=== PATIENT | male | born 1950 | race Caucasian/White ===

== ENCOUNTER 2024-11-21 15:33 | Emergency (ER) | payer MEDICARE, OTHER, SELFPAY ==
[2024-11-21 15:37] VITALS: BP 136/86
[2024-11-21 16:21] LABS: Hematocrit 38.3 % (39.0-52.0); Hemoglobin 13.5 g/dL (13.0-18.0); Mean Corp Hgb Conc. 35.2 g/dL (33.0-37.0); Mean Corpuscular Volume 94.1 fL (80.0-94.0); Nucleated Red Blood Cells % 0 % (-); Platelet Count 122 10^3/uL (130-400); Red Cell Dist. Width 16.4 % (11.5-14.5)
[2024-11-21 16:53] LABS: ALT (SGPT) 22 U/L (0-50); AST (SGOT) 44 U/L (17-59); Albumin 4.0 g/dl (3.5-5.0); Alkaline Phosphatase 144 U/L (38-126); Blood Urea Nitrogen 8 mg/dl (9-20); Calcium 9.0 mg/dl (8.4-10.2); Carbon Dioxide 22 mmol/L (22-30); Chloride 109 mmol/L (98-107); Glucose 102 mg/dl (70-99); Potassium 3.9 mmol/L (3.5-5.1); Sodium 142 mmol/L (135-145); Total Protein 8.4 g/dl (6.3-8.2); eGFR > 60.00
--- NOTE | 2024-11-21 17:54 | ED.GENMED ---
History of Present Illness
<Jenae Barrera PA-C - Last Filed: 11/22/24 11:10>
General
Chief Complaint: Fall
Source: patient
Exam Limitations: none
Time Seen by Provider: 11/21/24 16:27
Nursing documentation reviewed up to this point in time: agreed with
History of Present Illness
History of Present Illness:
Patient is a 74-year-old male with history atrial fibrillation on Eliquis, COPD who presents to the emergency department for evaluation of generalized weakness. Patient states earlier today he was getting all of his hunting gear into the car when
he became severely weak and unable to stand. He was able to lay himself across his backseat of his car so he did not fall or strike his head. However�he was unable to get up on his own prompting a call to 911.
At this time�patient feels extremely fatigued however denies any chest pain, shortness of breath, dizziness, headache. He has not had any recent fever, chills, or viral symptoms.
Patient does report having a few vodka drinks on his drive to hunting today. He drinks approximately 6 drinks per day. He was sober for the past 5 years until recently. He does not have any current interest in rehab placement today.
He reports similar episodes occurring approximately 6 times over the past few months. He has been admitted at a hospital in [place] for similar symptoms without any clear diagnosis.
Patient is anticoagulated on Eliquis however reports poor compliance.
Review of Systems
<Jenae Barrera PA-C - Last Filed: 11/22/24 11:10>
Review of Systems
Allergies reviewed?: Yes
All Other Systems: ROS reviewed and negative except as documented in HPI and ROS
Phy Exam
<Jenae Barrera PA-C - Last Filed: 11/22/24 11:10>
Physical Exam
Physical Exam:
Vitals: Mildly hypertensive, otherwise vital signs stable. Afebrile
General: Patient is resting comfortably on my initial evaluation
Skin: Warm and dry, no rashes or lesions
Head: Normocephalic, atraumatic
Eyes: Sclera nonicteric. EOMs intact. No nystagmus.
Throat: Protecting airway
Neck: Normal ROM, no cervical spine tenderness, no meningismus
Cardiac: Regular rate, irregularly irregular rhythm. No murmurs
Pulm: Normal respiratory effort. Somewhat decreased breath sounds bilaterally
Abdomen: Mildly distended. Abdomen soft nontender.
Extremities: No evidence of cyanosis or edema. Strength 5/5 in bilateral upper and lower extremities without any evidence of traumatic injuries
Neuro: AAOx3. CN II-XII grossly intact. No focal neurologic deficits.
Psychiatric: Normal affect.
Course
<Jenae Barrera PA-C - Last Filed: 11/22/24 11:10>
Orders/Labs/Results
Orders:
Orders
11/21/24 15:39
EKG [Electrocardiogram (*1)] Urgent
Reason for Study: Fatigue / Weakness
11/21/24 15:40
EKG- Treatment ONCE
11/21/24 16:07
Alcohol Urgent
Complete Blood Count/With Diff Urgent
Comprehensive Metabolic Panel Urgent
Magnesium Urgent
Comment: ADD ON
Phosphorus Urgent
Comment: ADD ON
11/21/24 17:10
Cardiac Monitoring- Treatment ONCE
CR Chest - 2 Views Urgent
Comment:
Reason For Exam: SOB
11/21/24 17:11
Orthostatic VS- Treatment ONCE
11/21/24 17:15
Add On- LAB Urgent
Tests Added?: alcohol
11/21/24 17:48
Add On- LAB Urgent
Tests Added?: magnesium, phosphorus, thiamine
11/21/24 17:52
NT-proBNP Urgent
Troponin I Urgent
Urinalysis Reflex To Culture Urgent
Date Specimen was Collected: 11/21/24
Time Specimen was Collected: 17:43
Urine Microscopic Reflex Cult Urgent
11/21/24 18:06
0.9% Sodium Chloride 1000 ml [Nss] 1,000 ml IV BOLUS
11/21/24 19:32
Troponin I Urgent
Vitamin B1, Whole Blood [S] Urgent
Comment: FOR SEND OUT
11/21/24 19:50
ECG [Electrocardiogram (*1)] Urgent
Reason for Study: Vertigo / Dizzy
11/21/24 19:51
EKG- Treatment ONCE
Abnormal Lab Results
11/21/24 11/21/24
16:07 17:52
WBC 4.7 L 10^3/uL
(4.8-10.8)
RBC 4.07 L 10^6/uL
(4.70-6.10)
Hct 38.3 L %
(39.0-52.0)
MCV 94.1 H fL
(80.0-94.0)
MCH 33.2 H pg
(27.0-31.0)
RDW 16.4 H %
(11.5-14.5)
Plt Count 122 L 10^3/uL
(130-400)
Eosinophils % 11.1 H %
(0-6)
Chloride 109 H mmol/L
(98-107)
BUN 8 L mg/dl
(9-20)
Glucose 102 H mg/dl
(70-99)
Total Bilirubin 1.8 H mg/dl
(0.2-1.3)
Alkaline Phosphatase 144 H U/L
(38-126)
Total Protein 8.4 H g/dl
(6.3-8.2)
Ur Occult Blood Reflex 1+ A
(Negative)
Urine Bacteria (Reflex) Few A
(Negative)
11/21/24 16:07
11/21/24 16:07
Vital Signs
Initial and Last Documented VS:
Initial Vital Signs
Temp Pulse Resp BP Pulse Ox
98.5 F 58 18 136/86 96
11/21/24 15:37 11/21/24 15:37 11/21/24 15:37 11/21/24 15:37 11/21/24 15:37
Last Documented Vital Signs
Temp Pulse Resp BP Pulse Ox
98.5 F 79 18 138/72 99
11/21/24 15:37 11/21/24 20:44 11/21/24 20:44 11/21/24 20:44 11/21/24 20:44
<Williams Palmer MD - Last Filed: 11/22/24 14:10>
Orders/Labs/Results
Orders:
Orders
11/21/24 15:39
EKG [Electrocardiogram (*1)] Urgent
Reason for Study: Fatigue / Weakness
11/21/24 15:40
EKG- Treatment ONCE
11/21/24 16:07
Alcohol Urgent
Complete Blood Count/With Diff Urgent
Comprehensive Metabolic Panel Urgent
Magnesium Urgent
Comment: ADD ON
Phosphorus Urgent
Comment: ADD ON
11/21/24 17:10
Cardiac Monitoring- Treatment ONCE
CR Chest - 2 Views Urgent
Comment:
Reason For Exam: SOB
11/21/24 17:11
Orthostatic VS- Treatment ONCE
11/21/24 17:15
Add On- LAB Urgent
Tests Added?: alcohol
11/21/24 17:48
Add On- LAB Urgent
Tests Added?: magnesium, phosphorus, thiamine
11/21/24 17:52
NT-proBNP Urgent
Troponin I Urgent
Urinalysis Reflex To Culture Urgent
Date Specimen was Collected: 11/21/24
Time Specimen was Collected: 17:43
Urine Microscopic Reflex Cult Urgent
11/21/24 18:06
0.9% Sodium Chloride 1000 ml [Nss] 1,000 ml IV BOLUS
11/21/24 19:32
Troponin I Urgent
Vitamin B1, Whole Blood [S] Urgent
Comment: FOR SEND OUT
11/21/24 19:50
ECG [Electrocardiogram (*1)] Urgent
Reason for Study: Vertigo / Dizzy
11/21/24 19:51
EKG- Treatment ONCE
Abnormal Lab Results
11/21/24 11/21/24
16:07 17:52
WBC 4.7 L 10^3/uL
(4.8-10.8)
RBC 4.07 L 10^6/uL
(4.70-6.10)
Hct 38.3 L %
(39.0-52.0)
MCV 94.1 H fL
(80.0-94.0)
MCH 33.2 H pg
(27.0-31.0)
RDW 16.4 H %
(11.5-14.5)
Plt Count 122 L 10^3/uL
(130-400)
Eosinophils % 11.1 H %
(0-6)
Chloride 109 H mmol/L
(98-107)
BUN 8 L mg/dl
(9-20)
Glucose 102 H mg/dl
(70-99)
Total Bilirubin 1.8 H mg/dl
(0.2-1.3)
Alkaline Phosphatase 144 H U/L
(38-126)
Total Protein 8.4 H g/dl
(6.3-8.2)
Ur Occult Blood Reflex 1+ A
(Negative)
Urine Bacteria (Reflex) Few A
(Negative)
11/21/24 16:07
11/21/24 16:07
Vital Signs
Initial and Last Documented VS:
Initial Vital Signs
Temp Pulse Resp BP Pulse Ox
98.5 F 58 18 136/86 96
11/21/24 15:37 11/21/24 15:37 11/21/24 15:37 11/21/24 15:37 11/21/24 15:37
Last Documented Vital Signs
Temp Pulse Resp BP Pulse Ox
98.5 F 79 18 138/72 99
11/21/24 15:37 11/21/24 20:44 11/21/24 20:44 11/21/24 20:44 11/21/24 20:44
<Jenae Barrera PA-C - Last Filed: 11/22/24 11:10>
MDM/Problems Addressed
Differential Diagnosis Includes:
Not limited to: Acute dehydration, UTI, viral illness, alcohol intoxication, anemia, etc.
MDM/Problems Addressed:
74-year-old male presenting with generalized weakness. He has had multiple similar episodes over the past few months. Today�he denies any preceding chest pain, shortness of breath. He did not fall or sustain any injuries. He does report having a
few drinks prior to onset of weakness. Vitals as above. On exam�patient has no evidence of head or neck trauma. Cardio/pulmonary assessment unremarkable. He is neurologically intact without any focal deficits. Strength appears intact, as well.
Differential includes cardiac arrhythmia, dehydration, UTI, viral illness. Weakness may be secondary to deconditioning and alcohol use. He is not interested right now in any acute rehab placement.
ED plan: Labs, EKG, UA. Will obtain chest x-ray, cardiac enzymes given history of progressively worsening shortness of breath however asymptomatic now. Will check alcohol level.
Update: Labs reveal mild thrombocytopenia, otherwise no clinically significant abnormalities. Alcohol level 276. Will give IVF and reassess patients ambulatory status.
Case signed out to attending physician.
Chronic conditions affecting care:
Atrial fibrillation on Eliquis, alcohol use disorder
Acute Exacerbation and/or Progression of Chronic Illness:
N/A
<Jenae Barrera PA-C - Last Filed: 11/22/24 11:10>
*Radiology
Radiology exam reviewed: preliminary read by ED provider and radiology read reviewed
*Pulse Oximetry
SaO2: 96
Oxygen Mode of Delivery: Room air
Patient hypoxic: no
*EKG
Interpreted by ED Provider?: Yes
EKG Intrepretation Date: 11/21/24
Interpretation: abnormal
Comparison EKG: no changes
Heart Rate: 60
Rate: normal
Rhythm: a-fib
Poyen: normal axis
Interval: normal QT interval
QRS Pattern: low voltage
Ischemia: non-specific ST changes
*General Maintenance Engineer Interpretation
Rate: General Maintenance Engineer- N/A
*Critical Care Note
Total Time (30-74mins, 75-104mins- exclusive of procedures): Not Applicable
ED Attending Note
<Jenae Barrera PA-C - Last Filed: 11/22/24 11:10>
-
Portions of this chart may have been created with voice recognition software.� Occasional wrong word or��sound alike� substitutions may have occurred due to the inherent limitations of voice recognition software.
<Williams Palmer MD - Last Filed: 11/22/24 14:10>
ED Attending Note
Patient seen and examined by attending physician: Yes
ED Attending Note:
Patient with history of chronic alcoholism and atrial fibrillation on Eliquis, presents ED for evaluation after recurrent generalized weakness with sensation of 'passing out', while sitting in his car this afternoon. Denies loss of consciousness.
Denies headache. Denies dizziness. Denies loss of sensation or focal weakness. Denies chest pain or palpitations. Denies shortness of breath. Denies nausea or vomiting. Denies diarrhea. No recent change in medications or diet. However,
patient does admit to having had alcohol, i.e. vodka, today. Patient does understand that his recurrent symptoms are likely secondary to his chronic alcohol use. Patient does not wish to pursue any acute inpatient treatment. Patient states that
he has been admitted to the hospital on multiple occasions, with unremarkable workup.
Physical Exam
General: no apparent distress, not acutely ill. afebrile. overweight.
Head: nc/at. eomi
Neck: supple. no meningeal signs.
Heart: s1/s2 regular rate and rhythm
Lungs: no acute respiratory distress. clear bilaterally
Abdomen: normal bowel sounds. not tender.
Neuro: alert and oriented x 3. no focal neurological deficits. normal speech
Skin: no rash
Psychiatric: well kept. interactive and cooperative
Extremities: no edema. no calf tenderness.
Patient declined recommendation to receive CT head, as he states that he has had too many CT scans for similar complaint recently, which I believe is reasonable, as patient currently has no obvious neurological deficit with normal mentation.
After receiving IV fluids, patient reports significant improvement in symptoms. Patient is able to ambulate independently, with steady gait. Discussed differential diagnosis and treatment options with patient and his spouse at bedside. Despite
patient's current presenting symptoms, which may be acute on chronic, with patient's continual consumption of alcohol, patient aware that overnight stay in the hospital will not offer any long-term benefit especially as patient has been admitted at
different hospital for same complaint recently, with significant workup. Patient is currently not interested in [facility], and would like to follow-up with [email or web address], with whom he has had success in the past. In the meantime, spouse, who does
not live with the patient, states that she will make arrangements for him to get appropriate outpatient follow-up and watch him closely at home. As such, decision made to discharge patient home at this time, with return precautions provided.
Discharge Plan
Departure
Patient Disposition: Home (Routine Discharge)
Date of Disposition: 11/21/24
Time of Disposition: 20:43
Patient with high blood pressure during this ER visit?: Yes
Condition: Fair
Discharge Problem:
Alcoholism, Thrombocytopenia
Instructions: Managing increased bleeding risk, Alcohol use disorder - ED (DC)
Prescriptions:
No Action
ergocalciferol (vitamin D2) 400 UNIT tablet
125 mcg PO QPM
fluticasone propionate 1 SPRAY spray,suspension
1 spray intranasal QPM
Patient Comments:
takes 50
apixaban [Eliquis] 5 MG tablet
5 mg PO BID
multivitamin 1 EACH tablet
1 tab PO QPM
cetirizine 10 MG tablet
10 mg PO QPM
aspirin 81 MG tablet,delayed release (DR/EC)
81 mg PO QPM
potassium gluconate 600 MG tablet
99 mg PO QPM
diltiazem HCl 120 MG capsule,extended release 24hr
120 mg PO DAILY Qty: 90 3RF
Rx Instructions:
Please note decreased daily dose
Referrals:
Luan Navarro DO [Family Provider, Family Practice]
Activity Restrictions/Additional Instructions:
As discussed, please follow-up with your primary care physician for further evaluation and treatment, including repeat blood work over the next 2 weeks. In addition, strongly recommend following up with [facility], for treatment of your
chronic alcohol dependence.
Interventions
Interventions:
*Risk Screen - Suicide Last Done: 11/21/24 15:37
*General Assessment Last Done: 11/21/24 15:37
*Neglect/Abuse Screening Last Done: 11/21/24 15:37
*ED- Fall Risk Assessment Last Done: 11/21/24 15:37
*ED COVID-19 Vaccine History Last Done: 11/21/24 15:37
*Nursing Disposition Last Done: 11/21/24 20:46
ED-Musculoskeletal Assessment Last Done: 11/21/24 16:32
ED- Neurological Assessment Last Done: 11/21/24 16:32
ED-Skin Assessment Last Done: 11/21/24 16:32
Discharge Date and Time
Discharge Date/Time: 11/21/24 20:49
Print Language: OCCITAN
[2024-11-21 18:01] VITALS: BP 128/84; BP 130/80; BP 132/84; PULSE 74; PULSE 76
[2024-11-21 18:02] LABS: Magnesium 1.6 mg/dl (1.6-2.3)
[2024-11-21 18:11] LABS: Urine Character Clear (Clear)
[2024-11-21] MEDS: NSS 1000 IV (18:15)
[2024-11-21 18:16] LABS: Urine Squamous Cell 0-2 /LPF (Few)
[2024-11-21 18:18] LABS: Urine Red Blood Cell 0-2 /HPF (0-2); Urine White Cell 0-2 /HPF (0-5)
[2024-11-21 18:37] LABS: Troponin I 0.019 ng/ml
[2024-11-21 20:07] LABS: Troponin I 0.019 ng/ml
[2024-11-21 20:44] VITALS: BP 138/72
== END 2024-11-21 20:49 | disposition home or self-care (01) ==
LOC: EMR 15:33
PROVIDERS: Physician Assistant; Student in an Organized Health Care Education/Training Program; EMERGENCY PHYSICIAN Emergency Medicine; FAMILY PHYSICIAN Family Medicine
DX: F10.20 Alcohol dependence, uncomplicated (principal); Y90.8 Blood alcohol level of 240 mg/100 ml or more; D69.6 Thrombocytopenia, unspecified; I48.91 Unspecified atrial fibrillation; J44.9 Chronic obstructive pulmonary disease, unspecified; Z79.01 Long term (current) use of anticoagulants; Z91.148 Patient's other noncompliance with medication regimen for other reason
CPT/HCPCS: 99285; 96360; 71046; 80053; 81003; 81015; 82077; 83735; 83880; 84100; 84425; 84484; 85025; 93005

== ENCOUNTER 2024-12-30 06:01 | Inpatient (IN) | payer MEDICARE, OTHER, SELFPAY ==
[2024-12-25 09:07] VITALS: BMI 32.3
[2024-12-25 09:37] LABS: Hematocrit 37.8 % (39.0-52.0); Hemoglobin 13.1 g/dL (13.0-18.0); Mean Corp Hgb Conc. 34.7 g/dL (33.0-37.0); Mean Corpuscular Volume 95.9 fL (80.0-94.0); Nucleated Red Blood Cells % 0 % (-); Platelet Count 132 10^3/uL (130-400); Red Cell Dist. Width 15.7 % (11.5-14.5)
[2024-12-25 09:38] LABS: INR 1.33; PT 16.7 Sec (11.4-14.6)
[2024-12-25 09:39] LABS: APTT 33.4 Sec (23.4-35.0)
[2024-12-25 09:52] LABS: Blood Urea Nitrogen 16 mg/dl (9-20); Calcium 9.5 mg/dl (8.4-10.2); Carbon Dioxide 28 mmol/L (22-30); Chloride 109 mmol/L (98-107); Estimated Creatinine Clearance 85 ml/min; Glucose 115 mg/dl (70-99); Potassium 3.4 mmol/L (3.5-5.1); Sodium 140 mmol/L (135-145); eGFR > 60.00
--- NOTE | 2024-12-28 08:40 | PTCARENOTE ---
Mehreen in Dr. Weeks's office made aware of WBC 2.7, K 3.4, INR 1.33 from labs resulted 12/25.
--- NOTE | 2024-12-28 15:26 | PTCARENOTE ---
Dr. Benites made aware of K 5.4, no further action requested.
[2024-12-30] VITALS (44 sets, daily range): BP systolic 102–147; BP diastolic 67–103; BMI 33.6
[2024-12-30] MEDS: BACTROBAN NASAL 1 GRAM NASAL (06:47)
[2024-12-30] MEDS: PERIDEX 0.12% ORAL RINSE 15 ML PO (06:47)
--- NOTE | 2024-12-30 07:08 | W.SUR.PREOP ---
Pre-Operative Surgical Note
-
I have examined this patient prior to the performance of the scheduled procedure.
The patient's condition is unchanged from the time of the current History and
Physical and the patient is able to undergo the scheduled procedure.
[2024-12-30 07:21] LABS: Hematocrit 36.2 % (39.0-52.0); Hemoglobin 12.4 g/dL (13.0-18.0); Mean Corp Hgb Conc. 34.3 g/dL (33.0-37.0); Mean Corpuscular Volume 96.0 fL (80.0-94.0); Platelet Count 133 10^3/uL (130-400); Red Cell Dist. Width 15.5 % (11.5-14.5)
[2024-12-30 07:37] LABS: INR 1.17; PT 15.4 Sec (11.4-14.6)
[2024-12-30 07:38] LABS: APTT 31.2 Sec (23.4-35.0)
[2024-12-30 07:58] LABS: Blood Urea Nitrogen 13 mg/dl (9-20); Calcium 8.8 mg/dl (8.4-10.2); Carbon Dioxide 27 mmol/L (22-30); Chloride 108 mmol/L (98-107); Estimated Creatinine Clearance 96 ml/min; Glucose 115 mg/dl (70-99); Potassium 3.5 mmol/L (3.5-5.1); Sodium 139 mmol/L (135-145); eGFR > 60.00
[2024-12-30 10:34] LABS: Hematocrit 34.1 % (39.0-52.0); Hemoglobin 11.6 g/dL (13.0-18.0); Mean Corp Hgb Conc. 34.0 g/dL (33.0-37.0); Mean Corpuscular Volume 97.2 fL (80.0-94.0); Platelet Count 108 10^3/uL (130-400); Red Cell Dist. Width 15.7 % (11.5-14.5)
[2024-12-30 11:04] LABS: ALT (SGPT) 21 U/L (0-50); AST (SGOT) 29 U/L (17-59); Albumin 3.2 g/dl (3.5-5.0); Alkaline Phosphatase 101 U/L (38-126); Blood Urea Nitrogen 12 mg/dl (9-20); Calcium 8.0 mg/dl (8.4-10.2); Carbon Dioxide 27 mmol/L (22-30); Chloride 109 mmol/L (98-107); Estimated Creatinine Clearance 109 ml/min; Glucose 126 mg/dl (70-99); Potassium 3.8 mmol/L (3.5-5.1); Sodium 141 mmol/L (135-145); Total Protein 6.6 g/dl (6.3-8.2); eGFR > 60.00
[2024-12-30 11:14] LABS: Magnesium 1.6 mg/dl (1.6-2.3)
--- NOTE | 2024-12-30 11:18 | CON.INTV ---
Consultation
Consultation Request
Date/Time Consultation Requested: 12/30
Date/Time Consultation Performed: 12/30
Reason for Consultation: Critical care
Medical History
-
History of Present Illness:
History obtained from the patient and reviewing outpatient and inpatient records. Pleasant 74-year-old male with history of hypertension, atrial fibrillation on chronic anticoagulation, history of AAA status post repair in 2017 followed by
transcatheter embolization of type II endoleak in 2020. Patient has history of multiple falls in the past which according to records workup was negative however some of these falls have been related to alcohol use. Patient had quit drinking
alcohol for 5 years, but then resumed recently, up to half a bottle of vodka a day. He states he has not had a drink for 2 weeks in anticipation of surgery. He has status post endovascular repair of type Ib endoleak with bilateral iliac limb
extension 12/30/2024. We are asked to help from critical care standpoint
.
PMH: Hypertension, hyperlipidemia, history of COPD, AAA aneurysm with repair, chronic atrial fibrillation/atrial flutter, history of cardioversion 2019 at [facility] , history of sleep apnea intolerant of treatment, history of alcohol abuse.
History of bilateral knee replacement
Past Medical History
Past Medical History: None (See above)
Past Surgical History: None (See above)
Social History
Tobacco: Former Smoker (60+ pack year, quit 2017)
Alcohol: Former (Significant alcohol history, was sober for 5 years, then resumed recently. He quit 2 weeks prior to current admission 12/30/2024)
Drug: None
Living: Alone
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
Family History
Family History: Other (Stepchildren. Mother from heart attack, bypass surgery. Brother with hypertension. Father from prostate cancer)
Allergies / Home Medications
Allergies
Allergy/AdvReac Type Severity Reaction Status Date / Time
No Known Drug Allergies Allergy Unknown Verified 12/30/24 06:45
perfume AdvReac Throat Verified 12/30/24 06:45
itching
Home Medications
�Medication �Instructions �Recorded �Confirmed �Last Taken �Type
apixaban 5 mg tablet (Eliquis) 5 mg PO BID Blood clot 01/27/21 12/30/24 12/27/24 19:00 History
prevention/tx
cetirizine 10 mg tablet 10 mg PO QPM Allergies 01/27/21 12/30/24 12/30/24 04:30 History
fluticasone propionate 50 1 spray intranasal PRN PRN 01/27/21 12/30/24 12/29/24 19:00 History
mcg/actuation nasal allergies/congestion
spray,suspension
multivitamin 1 tab PO QPM Supplement 01/27/21 12/30/24 12/28/24 17:00 History
potassium gluconate 600 mg (99 mg) 99 mg PO BID Supplement 01/27/21 12/30/24 12/28/24 19:00 History
tablet
budesonide-formoterol HFA 160 1 inh inhalation BID 12/24/24 12/30/24 12/30/24 04:30 History
mcg-4.5 mcg/actuation aerosol
inhaler (Symbicort)
cholecalciferol (vitamin D3) 25 25 mcg PO QPM 12/24/24 12/30/24 12/28/24 19:00 History
mcg (1,000 unit) tablet (Vitamin
D3)
diltiazem HCl 90 mg 90 mg PO DAILY 12/24/24 12/30/24 12/30/24 04:30 History
capsule,extended release 12 hr
folic acid 1 mg tablet 1 mg PO QPM 12/24/24 12/30/24 12/28/24 19:00 History
magnesium oxide 400 mg PO BID 12/24/24 12/30/24 12/28/24 19:00 History
naltrexone 50 mg tablet 50 mg PO DAILY 12/24/24 12/30/24 12/28/24 19:00 History
tamsulosin 0.4 mg capsule (Flomax) 0.4 mg PO QPM 12/24/24 12/30/24 12/29/24 19:00 History
thiamine HCl (vitamin B1) 100 mg 100 mg PO QPM 12/24/24 12/30/24 12/28/24 17:00 History
tablet (Vitamin B-1)
Review of Systems
-
All other systems: Negative unless noted (Patient describes 80 pound weight loss intentional but did not feel well, regained 30 pounds)
Vitals / Labs / Diagnostic Testing
Vital Signs
Temp Pulse Resp BP Pulse Ox
96.7 F L 63 11 123/77 94
12/30/24 11:16 12/30/24 10:55 12/30/24 10:55 12/30/24 10:45 12/30/24 10:55
Lab Data
12/30/24 10:25
12/30/24 10:24
Laboratory Results
12/30/24
06:59
PT 15.4 H
INR 1.17
APTT 31.2
Diagnostic Testing:
Physical Exam
-
HEENT: Normocephalic, Anicteric, Other (Right upper extremity) and Other (Large neck)
Cardiovascular: S1/S2, Regular Rhythm, Murmur (n), Rub (n), Peripheral Edema (chronic venous stasis changes) and Other (Bilateral groin sites intact)
Respiratory: Wheeze (n), Rales (n), Rhonchi (n) and Non-Labored Respirations
GI: Soft, Non Distended (Obese) and Non Tender
Neurology: Awake, Alert and No Motor Deficits (Moves all extremities)
Skin: Good Color
General: Comfortable
Assessment
-
74-year-old male with 60+ pack-year history of smoking, atrial fibrillation on anticoagulation, history of infrarenal AAA repair 2018 complicated by type II endoleak requiring transcatheter embolization in 2020, now presents with type Ib endoleak
from both iliac arteries, now status post endovascular repair 12/30
S/p endovascular repair of type Ib endoleak with bilateral iliac limb extension
12/30/2024
History of infrarenal AAA repair 2017
Complicated by type II endoleak requiring transcatheter embolization 2020
Recent history of multiple falls
Workup negative
Attributed to alcohol use
Significant alcohol use history, quit 2 weeks prior to admission
Drinks up to half a bottle of vodka a day
Had quit for 5 years prior
Hospitalized October 2024 x 2, ED visit November 2024 (alcohol intoxication with fall)
Pancytopenia
Conditions present prior to admission
Hypertension/hyperlipidemia
Atrial fibrillation on anticoagulation
History of coronary disease, per records
History of sleep apnea, intolerant to CPAP therapy
Suspected COPD
[id number] history of smoking, quit 2016
80 pound weight loss intentional
Regained 30 pounds
Pulmonary nodule per history
Left lower lobe nodular infiltrate per imaging 10/17/2024 (my review)
14 mm in 2021, now 35mm in 2024 (my rev)
Mild emphysema and mild interstitial changes
Mild pleural calcifications
Plan/recommendations
At this time, patient is critically ill but remains stable
Hemodynamically stable, without complaints
Bilateral groin sites appear to be intact, patient denying any significant pain
No abdominal pain on exam, no lower extremity discomfort
Moving forward
Continue with management per vascular surgery
Follow bilateral femoral pulses, lower extremities
Follow abdominal exam
Await postoperative report. Reviewed outpatient vascular records
Patient with significant alcohol history, last drink 2 weeks ago
Thiamine/folate
EKG with atrial fibrillation
Chest x-ray preadmission with no acute findings, chronic right middle lobe process
Reviewed CT images from 2021 and 2024
There is a left lower lobe nodular infiltrate. Given significant smoking history, this will require follow-up
Patient also with history of COPD, does not follow with pulmonary
Continue with outpatient inhaler regimen
Recommend outpatient pulmonary follow-up
Reviewed with critical care nursing
We will follow
TCCT 35 min
[2024-12-30] MEDS: NSS 1000 IV ×2 (11:40→23:35)
--- NOTE | 2024-12-30 12:30 | PTCARENOTE ---
Pt received from PACU s/p endovascular repair type 1b endoleak with b/l iliac limb extension. B/L groin sites intact without apparent hematoma. Pt denying pain. Pt states history of alcohol abuse and withdraw symptoms; states last drink was 2 weeks
ago. A Fib on record librarian. B/L tibial pulses palpable, b/L dorsalis pedis confirmed by doppler. +1 pitting LE edema. Right radial arterial line transduced, zeroed, and flushed. Results reading within 10mmHg of cuff pressure. SBP within goal
rage without Neosynephrine/Cardene. Received on room air; SaO2 89%. Pt advanced to 4L NC; SaO2 95%. Diminished breath sounds. Occasional nonproductive cough. Abdomen round, obese, full. Tolerating clear liquids. Bess catheter in place draining
clear yellow. Activity and HOB restrictions reviewed with patient. NSS infusing @ 80ml/hr.
--- NOTE | 2024-12-30 12:58 | OR.RPT ---
Operative Report
Operative Report
PROCEDURE DATE: 12/30/2024
Preoperative diagnosis:
1. Abdominal aortic aneurysm.
2. Status post endovascular repair of abdominal aortic aneurysm.
3. Type Ib endoleak.
Postoperative diagnosis: Same
Procedure:
1. Endovascular repair of abdominal aortic aneurysm/type Ib endoleak (right iliac limb) with Cook Zenith iliac branch endoprosthesis ([id number]).
2. Right internal iliac artery stent placement (in conjunction with iliac branch endoprosthesis) with iCast 9mm x 38mm covered stent.
3. Left iliac limb extension with [place] excluder 16mm x 16mm x9.5cm iliac limb extension.
4. Percutaneous bilateral common femoral artery closure.
Surgeon: Micky
Sales Development Manager: FROYLAN Dial, peripheral aspects of procedure including assistance with traction/countertraction, device delivery.
Complications: None
Anesthesia: General
Indications for procedure:
Patient with large type Ib endoleak right iliac limb was not sealed. Also left iliac limb with poor seal zone, though no definitive leak on that side. Discussed with him endovascular repair of the endoleak/aneurysm. Discussed ideally utilization
of a branched iliac device. Based on the relatively smaller diameter of the iliac limb (nonaneurysmal iliac), we felt the Cook iliac branch endoprosthesis would be ideal. Risk/benefits/alternatives also discussed with patient. He understood and
wished to proceed.
Description of procedure:
Patient was identified brought to the operating room placed on the table in supine position. After the adequate administration of anesthesia and perioperative antibiotics he was prepped and draped in the standard surgical fashion. A standard
preoperative timeout was undertaken and everybody was in agreement the plan. Bilateral common femoral artery access was obtained under direct duplex ultrasound guidance. 6 [place] sheaths were placed over 0.035 inch wires. Sheath passage was a
little difficult on the right side due to scarring in the groin from prior surgical exposure. Next, small 1 cm incisions were made around the sheath entry sites bilaterally. Blunt dissection was undertaken with hemostats to facilitate percutaneous
suture delivery. Next, using the ProGlide suture system, percutaneous sutures were deployed at the 10:00 and 2 o'clock position bilaterally in the standard fashion. Suture strands were tagged outside the skin. We exchanged for 11 [place] sheath on
the right side, and a 12 [place]erratian [place] dry seal on the left side.
The patient was given 9000 units of intravenous heparin. Stiff [place]under[place] wire was advanced into the supraceliac aorta from the right sided access, Amplatz wire had been on the left side.
Next, the iliac branch endoprosthesis device was prepped and oriented under fluoroscopy. ([place] ZBIS [id number]). The short 11 [place] sheath was then exchanged out, and the delivery system was then advanced over the stiff Lunderquist wire.
Significant obliquity was required, gantry was rotated to KOREAN 60 degrees approximately. Of note prior to advancing the device, retrograde iliac angiography was obtained, and the iliac bifurcation was marked on the screen. The image intensifier and
table were locked. Because the pre-existing iliac limbs of the prior endograft crossed, we advanced the iliac branch endoprosthesis up with the iliac branch initially in an anterior facing direction so that the catheter associated with the iliac
branch would face anteriorly to facilitate contralateral snaring. Once positioned near the flow divider, I began to unsheath the iliac branch endoprosthesis until I saw the catheter reemerge. At this point a Glidewire was advanced through the
iliac branch catheter off the delivery device. With some torquing, I was able to advance it down the contralateral iliac limb over the flow divider (the entire device had been advanced quite high so that we could pass over the flow divider here to
gain contralateral through and through access). As such I was then able to advance the snare catheter up the left-sided sheath access into the iliac limb on that left side. And then I was able to snare the Glidewire. I pulled it out by pulling
out the snare catheter. I now had successful through and through access. At this point, the iliac branch endoprosthesis was then rotated so that the internal iliac branch was oriented essentially straight posteriorly which is how the internal
iliac artery origin was positioned. It was then unsheathed to open up the internal iliac branch. Now, an 8 [place] sheath was then advanced over the glide wire through the 12 [place] left sided dry seal sheath. (This was aided by placing
hemostats on the through and through Glidewire on either side, on the left side placing it just adjacent to the 8 [place] sheath. Then pulling the Glidewire from the right side while advancing the sheath. This allowed smooth passage of the 8 [place]
sheath into the iliac branch endoprosthesis).
At this point the 8 [place] sheath was punctured with an 18-gauge needle lateral to the existing wire entry (lateral aspect of the diaphragm of the sheath). Now a Glidewire was advanced. I then used a glide catheter and this floppy Glidewire to
cannulate the internal iliac artery. Once I was in the artery, I advanced the wire into the distal branch, and then advanced the glide catheter. Angiogram confirmed I was in the internal iliac artery. Next I exchanged for a [place] wire.
At this point, we removed our through and through wire access. Through the left sided 8 [place] sheath over the [place] wire, a iCast 9mm x 38mm covered stent was advanced and positioned. It was positioned such that the proximal aspect of the stent
marker lined up with the maximum overlap marker in the internal iliac limb of the iliac branch endoprosthesis. Once satisfied with positioning, I ballooned the stent into place. I maintained balloon inflation while I completed deployment of the
external iliac limb of the iliac branch endoprosthesis. Proximal constraint was removed. Pin vice was turned and the dilator was withdrawn into the sheath portion. Distal constraint was then removed. The delivery device was then walked off.
Once this was completed we deflated the iCast balloon. At this point we were satisfied. Angiogram demonstrated excellent filling of the internal iliac artery with good positioning of the stent. Therefore the 8 [place] sheath was now removed. The
wire through the left-sided 12 [place]ian access was then guided into the supraceliac aorta (Amplatz wire).
Power injection aortography was now performed. This demonstrated excellent filling through the stent graft. Both renal arteries followed well. There is no evidence of a type Ia endoleak. Now there was no evidence of a type Ib endoleak anymore
either. No filling of the aneurysm sac could be seen. Both the internal and external iliac arteries filled nicely on both sides, right sided iliac limb endoprosthesis look good.
Now a [place] 16mm x 16mm x 9.5cm iliac limb human services care specialist was used to extend the iliac stent graft to the bifurcation on the left side as the prior 1 had been short. When I deployed it the limb did lurch slightly proximally so I lost a little bit of seal
but it still appeared sealed nicely now. At this point I was very satisfied. This left iliac limb was balloon molded with a Coda balloon. Retrograde angiography demonstrated excellent positioning of the iliac limb with good seal.
Next, I sequentially removed the sheaths while cinching down the percutaneous sutures. This was initially done on the right side and then on the left. Once hemostasis was noted the wire was then withdrawn, the knot was tightened with a knot
pusher. Hemostasis was confirmed. The knot was then locked and the suture strands trimmed. This was done as noted on the right initially and then on the left. Protamine was given to reverse the heparin. Hemostasis was fully achieved bilateral
groins with good femoral pulses bilaterally. The small skin incisions were then closed with 4-0 Monocryl subcuticular stitch and Dermabond was applied. Patient tolerated procedure well. He had palpable PT pulses bilaterally upon completion.
[2024-12-30] MEDS: HEPARIN 5000 UNITS SC ×2 (16:43→23:38)
[2024-12-30] MEDS: VITAMIN B1 100 MG PO (16:44)
[2024-12-30] MEDS: THERAGRAN 1 TABLET PO ×2 (16:44)
[2024-12-30] MEDS: FOLVITE 1 MG PO (16:44)
[2024-12-30] MEDS: VITAMIN D3 (cholecalciferol) 25 MCG PO (16:44)
[2024-12-30] MEDS: ZYRTEC 10 MG PO (16:44)
[2024-12-30] MEDS: FLOMAX 0.4 MG PO (16:44)
[2024-12-30] MEDS: SYMBICORT 160/4.5 MCG INHALER 1 PUFF INH (19:50)
[2024-12-30] MEDS: MAGNESIUM OXIDE 400 MG PO (20:12)
[2024-12-31] VITALS (26 sets, daily range): BP systolic 115–157; BP diastolic 67–96; BMI 33.6
[2024-12-31 04:45] LABS: Hematocrit 34.6 % (39.0-52.0); Hemoglobin 11.5 g/dL (13.0-18.0); Mean Corp Hgb Conc. 33.2 g/dL (33.0-37.0); Mean Corpuscular Volume 99.4 fL (80.0-94.0); Platelet Count 121 10^3/uL (130-400); Red Cell Dist. Width 15.4 % (11.5-14.5)
[2024-12-31 05:02] LABS: Blood Urea Nitrogen 12 mg/dl (9-20); Calcium 7.9 mg/dl (8.4-10.2); Carbon Dioxide 24 mmol/L (22-30); Chloride 108 mmol/L (98-107); Estimated Creatinine Clearance > 125 ml/min; Glucose 147 mg/dl (70-99); Potassium 3.7 mmol/L (3.5-5.1); Sodium 136 mmol/L (135-145); eGFR > 60.00
[2024-12-31 05:16] LABS: APTT 31.7 Sec (23.4-35.0); INR 1.16; PT 15.3 Sec (11.4-14.6)
--- NOTE | 2024-12-31 05:20 | PTCARENOTE ---
Pt Aox3, VSS, Afib on monitor. Denies pain. Q1hour neurovascular checks. B/L groin sites are CDI. Small skin tear above left groin site. B/L LE pulses positive with Doppler.
[2024-12-31] MEDS: MAGNESIUM SULFATE 50 IV (06:51)
[2024-12-31] MEDS: SYMBICORT 160/4.5 MCG INHALER 1 PUFF INH (07:26)
[2024-12-31] MEDS: MAGNESIUM OXIDE 400 MG PO (07:37)
[2024-12-31] MEDS: LOW STRENGTH ASPIRIN 81 MG PO (07:37)
[2024-12-31] MEDS: CARDIZEM SR 90 MG PO (07:38)
[2024-12-31] MEDS: HEPARIN 5000 UNITS SC (07:38)
--- NOTE | 2024-12-31 07:42 | W.PN.VS ---
Addendum entered and electronically signed by Morteza Weeks MD 12/31/24 13:38:
Seen and examined with TASSEL SNIPPER earlier this a.m. This is a late entry. Agree with findings as noted below. Patient was without complaints. Abdomen soft, nondistended, nontender. Groins flat bilaterally. Small incisions clean dry and intact
bilaterally. Palpable PT pulses bilaterally. Plan/as discussed and noted below.
Original Note:
Today's Communication / Plan
-
Patient seen and examined at bedside with Dr. Morteza Weeks, below plan reviewed with attending.
Assessment/Plan
-
Assessment: 74-year-old male POD #1 Endovascular repair of abdominal aortic aneurysm/type Ib endoleak (right iliac limb) with Cook Zenith iliac branch endoprosthesis ([id number]). Right internal iliac artery stent placement (in conjunction
with iliac branch endoprosthesis) with iCast 9mm x 38mm covered stent. Left iliac limb extension with [place] excluder 16mm x 16mm x9.5cm iliac limb extension. Percutaneous bilateral common femoral artery closure.
Plan:
Discontinue arterial line
Discontinue IV fluids
Discontinue Bess catheter
Out of bed to chair with progression ambulation as tolerated
Okay to restart home oral anticoagulation
Possible discharge later this afternoon pending patient progression
Subjective Data
-
Date of Service: December 31, 2024
Patient seen and examined at bedside, offers no complaints. Denies nausea, vomiting, fever, and chills. Reports minimal discomfort at bilateral groin puncture sites.
Objective Data
-
Vital Signs
Temp Pulse Resp BP Pulse Ox
97.7 F 80 17 133/87 94
12/31/24 07:39 12/31/24 07:29 12/31/24 07:29 12/31/24 05:00 12/31/24 07:29
Intake and Output
12/30/24 12/31/24 01/01/25
06:59 06:59 06:59
Intake Total 3780 / 3780
Output Total 2470 / 2470
Balance 1310 / 1310
Intake:
Oral fluids 2159 / 2160
IV fluids (Total) 1619 / 1619
NSS 1620 / 1620
Output:
Urine, Bess 247 / 2469
Lab Results
12/31/24 03:59
12/31/24 03:59
Calcium 7.9 mg/dl (8.4-10.2) L 12/31/24 03:59
Phosphorus 3.9 mg/dl (2.5-4.5) 12/30/24 10:24
Magnesium 1.6 mg/dl (1.6-2.3) 12/30/24 10:24
Total Bilirubin 1.0 mg/dl (0.2-1.3) 12/30/24 10:24
Direct Bilirubin 0.4 mg/dl (0.0-0.4) 12/30/24 10:24
AST 29 U/L (17-59) 12/30/24 10:24
ALT 21 U/L (0-50) 12/30/24 10:24
Alkaline Phosphatase 101 U/L (38-126) 12/30/24 10:24
Total Protein 6.6 g/dl (6.3-8.2) 12/30/24 10:24
Albumin 3.2 g/dl (3.5-5.0) L 12/30/24 10:24
Physical Exam
-
No apparent distress, resting in bed comfortably
No tachycardia
No dyspnea on room air
Abdomen soft, nontender, nondistended
Bilateral groin puncture sites clean, dry, and intact, no evidence of hematoma, Exofin glue intact
Bilateral DP pulse +1 palpable
Bess draining clear yellow urine
--- NOTE | 2024-12-31 08:06 | W.PN.INTV ---
Today's Communication / Plan
Recommendations
Out of bed to chair, ambulate
Magnesium repletion
Reviewed imaging, left lower lobe nodule, increasing in size
Patient has had bronchoscopy at [facility] ([facility]) and follows up with [facility]
Discussed importance of follow-up
Local follow-up was offered but patient prefers follow-up with [facility]
Disposition efforts
Assessment
-
74-year-old male with 60+ pack-year history of smoking, atrial fibrillation on anticoagulation, history of infrarenal AAA repair 2018 complicated by type II endoleak requiring transcatheter embolization in 2020, now presents with type Ib endoleak
from both iliac arteries, now status post endovascular repair 12/30
S/p endovascular repair of type Ib endoleak with bilateral iliac limb extension
12/30/2024
History of infrarenal AAA repair 2017
Complicated by type II endoleak requiring transcatheter embolization 2020
Recent history of multiple falls
Workup negative
Attributed to alcohol use
Significant alcohol use history, quit 2 weeks prior to admission
Drinks up to half a bottle of vodka a day
Had quit for 5 years prior
Hospitalized October 2024 x 2, ED visit November 2024 (alcohol intoxication with fall)
Pancytopenia
Conditions present prior to admission
Hypertension/hyperlipidemia
Atrial fibrillation on anticoagulation
History of coronary disease, per records
History of sleep apnea, intolerant to CPAP therapy
Suspected COPD
[id number] history of smoking, quit 2016
80 pound weight loss intentional
Regained 30 pounds
Pulmonary nodule per history
Left lower lobe nodular infiltrate per imaging 10/17/2024 (my review)
14 mm in 2021, now 35mm in 2024 (my rev)
Mild emphysema and mild interstitial changes
Mild pleural calcifications
Plan/recommendations
At this time, patient is comfortable
Hemodynamically stable, without complaints
Bilateral groin sites appear to be intact, patient denying any significant pain
No abdominal pain on exam, no lower extremity discomfort
Moving forward
Continue with management per vascular surgery
Out of bed to chair, ambulate
Patient with significant alcohol history, last drink 2 weeks ago
Thiamine/folate
Discussed importance of alcohol abstinence
EKG with atrial fibrillation
Chest x-ray preadmission with no acute findings, chronic right middle lobe process
Reviewed CT images from 2021 and 2024
There is a left lower lobe nodular infiltrate. Given significant smoking history, this will require follow-up
On further questioning, patient has had attempted biopsy September 2024 ([place]), then was referred to [facility] ([place]) in [place]
Patient plans to follow-up with pulmonary. Discussed possibly malignancy. He was told that PET scan was negative
Offered patient local follow-up but he states he will follow-up with [facility] in [place]
Patient also with history of COPD, recommend follow-up with pulmonary
Continue with outpatient inhaler regimen, resume at time of discharge
Reviewed with critical care nursing
All questions answered
Disposition efforts
Subjective Dataa
Subjective Data
Date of Service:
Date of Service: December 31, 2024
Subjective:
Patient feels well, sitting in the chair. Denies shortness of breath, chest pain, nausea, abdominal pain. Had some mild lightheadedness with moving from the bed to the chair but otherwise feels well. Passing gas.
Objective Data
Data Reviewed
Vital Signs / I&O / Oxygen:
Vital Signs
Temp Pulse Resp BP Pulse Ox
97.7 F 80 17 133/87 94
12/31/24 07:39 12/31/24 07:29 12/31/24 07:29 12/31/24 05:00 12/31/24 07:29
Intake and Output
12/30/24 12/31/24 01/01/25
06:59 06:59 06:59
Intake Total 3780 / 3860 80 / 80
Output Total 2740 / 2745 275 / 275
Balance 1310 / 1115 -195 / -195
SaO2 94
Nasal Cannula flow liters per 2
minute
Physical Exam
General: Comfortable
HEENT: Normocephalic and Anicteric
Cardiovascular: S1-S2, Regular Rhythm, Murmur (n), Rub (n), Peripheral Edema (tr) and Other (Bilateral groin sites intact)
Respiratory: Wheeze (n), Crackles (n), Rhonchi (n) and Non-Labored Respirations
GI: Soft, Non Distended (Obese) and Non Tender
Neurology: Awake, Alert and No Motor Deficits (Moves all extremities, cranial nerves intact)
Skin: Cyanosis (n), Jaundice (n) and Rash (n)
Labs/Micro/Reports
Lab Data
12/31/24 03:59
12/31/24 03:59
Laboratory Results
12/31/24
03:59
PT 15.3 H
INR 1.16
APTT 31.7
[2024-12-31] MEDS: ELIQUIS 5 MG PO (08:09)
--- NOTE | 2024-12-31 09:52 | PTCARENOTE ---
Pt received in bed @ 0700. AAOx3. Denying pain. B/L groin sites with surgical adhesive. No hematoma observed. Neurovascular assessment as documented; pedal pulses present. A Fib on personnel monitor. SaO2 95% on room air. Orders to D/C arterial line
and amada acknowledged and carried out. Pt assisted to oob to chair.
--- NOTE | 2024-12-31 12:57 | W.DS.TRANS ---
DC Summary - Client Support Administrator
-
Discharge Instructions:
Discharge Diagnosis/Procedures Endovascular repair of abdominal aortic aneurysm
/type Ib endoleak (right iliac limb) with Cook
Zenith iliac branch endoprosthesis ([id number]
[id number]).
2. Right internal iliac artery stent placement
(in conjunction with iliac branch endoprosthesis
) with iCast 9mm x 38mm covered stent.
3. Left iliac limb extension with [place] excluder
16mm x 16mm x9.5cm iliac limb extension.
4. Percutaneous bilateral common femoral artery
closure.
Diet As tolerated
Activity No strenuous activity
Additional Activity No lifting greater than 10 pounds for 1 week
Driving Restrictions No driving for 1 week
Bathing Restrictions OK to Shower
Instructions:
Stand-Alone Forms: Vascular Surg Discharge Instr
Changes to Home Medications: Yes
Discharge Medications:
DC Medications w/original date entered in [employer]
apixaban 5 mg tablet (Eliquis) 5 mg PO BID Blood clot prevention/tx 01/27/21
cetirizine 10 mg tablet 10 mg PO QPM Allergies 01/27/21
fluticasone propionate 50 mcg/actuation nasal spray,suspension 1 spray intranasal PRN PRN allergies/congestion 01/27/21
multivitamin 1 tab PO QPM Supplement 01/27/21
potassium gluconate 600 mg (99 mg) tablet 99 mg PO BID Supplement 01/27/21
budesonide-formoterol HFA 160 mcg-4.5 mcg/actuation aerosol inhaler (Symbicort) 1 inh inhalation BID Lung/Breathing Issues 12/24/24
cholecalciferol (vitamin D3) 25 mcg (1,000 unit) tablet (Vitamin D3) 25 mcg PO QPM Supplement 12/24/24
diltiazem HCl 90 mg capsule,extended release 12 hr 90 mg PO DAILY Heart Disease/Condition 12/24/24
folic acid 1 mg tablet 1 mg PO QPM Supplement 12/24/24
magnesium oxide 400 mg PO BID Electrolyte Repletion 12/24/24
naltrexone 50 mg tablet 50 mg PO DAILY SUBSTANCE USE DISORDER 12/24/24
tamsulosin 0.4 mg capsule (Flomax) 0.4 mg PO QPM Urinary Issue 12/24/24
thiamine HCl (vitamin B1) 100 mg tablet (Vitamin B-1) 100 mg PO QPM Supplement 12/24/24
aspirin 81 mg chewable tablet 81 mg PO DAILY #90 tabs 12/31/24
Home Medication Changes
Added:
aspirin 81 mg chewable tablet 81 mg PO DAILY #90 tabs 12/31/24
Pending Results: No
--- NOTE | 2024-12-31 14:27 | CM ---
Initial assessment completed with patient who lives alone in a 1 story home with no basement, 2 steps to enter. 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 DME in home is [facility]. Had a CPAP but could not tolerate it and
threw it out years ago. No in-home services. Does have HC-POA. Was in the [employer] and has for life benefits. No psychiatric hospitalizations. PCP is Dr. Luan Navarro. Pharmacy is [facility] on [address] in [place]. Discharge
POC: Home with no needs. Patient has declined HH RN.
--- NOTE | 2024-12-31 14:43 | CM ---
Patient has been medically cleared for discharge to home with no additional skilled services. Patient has declined HH RN. Instructed to call PCP should needs change. Admission IMM within 48 hour Medicare timeframe. Patient's friend will transport
home.
--- NOTE | 2024-12-31 15:18 | PTCARENOTE ---
Pt reassessed. Neurovascular assessment without change. Pt ambulated a lap around the intensive care unit hallway without complaint. Vital signs stable. Denying pain. Discharge order placed. IV sites removed. Discharge instructions reviewed with
patient. Patient able to explain symptoms that would require immediate attention.
--- NOTE | 2025-01-01 09:42 | W.DCSUMMARY ---
Discharge Summary
Discharge Data
Date of Admission: 12/30/24
Date of Discharge: 12/31/24
-
Pending Results: No
Hospital Course
Attending: Micky
Consultants: Pulmonary medicine
Allergies: NKDA
Procedure with date: 12/30/2024:
Endovascular repair of abdominal aortic aneurysm/type Ib endoleak with Cook Zenith iliac branched endoprosthesis
Right internal iliac artery stent placement
Left iliac limb extension with [place] excluder
Percutaneous bilateral common femoral artery closure
History of present illness: The patient is an 74-year-old male with multiple medical conditions including: Hypertension, hyperlipidemia, COPD, AAA, A-fib, sleep apnea, alcohol abuse. Patient presented on 12/30/2024 for scheduled procedure with
Micky. Patient presented at baseline health with no reports of recent illness or trauma.
Hospital Course: Briefly, the patient underwent scheduled endovascular repair of endoleak without complications, and recovered in PACU. Following recovery phase one and two patient was transferred to intensive care unit per protocol for continued
hemodynamic monitoring. Industrial Controls Technician consulted to aid in medical management from a critical care perspective. POD #1 (12/31/2024) Patient doing well overall and tolerating PO diet. Surgical groin sites clean, dry, and intact with suture line well
approximated and soft. No evidence of hematoma. Arterial line and IV fluids discontinued. Patient able to ambulate without difficulty or incident. Patient stable for discharge to home.
Prescriptions and follow up appointment are included in the DC summary audioprosthologist note. All instructions were given to the patient in both written and verbal form and the patient expressed understanding.
Discharge Plan
-
Patient Disposition: Home (Routine Discharge)
Discharge Diagnosis/Procedures: Endovascular repair of abdominal aortic aneurysm/type Ib endoleak (right iliac limb) with Cook Zenith iliac branch endoprosthesis ([id number]).
2. Right internal iliac artery stent placement (in conjunction with iliac branch endoprosthesis) with iCast 9mm x 38mm covered stent.
3. Left iliac limb extension with [place] excluder 16mm x 16mm x9.5cm iliac limb extension.
4. Percutaneous bilateral common femoral artery closure.
Condition: Good
Diet: As tolerated
Activity: No strenuous activity
Additional Activity: No lifting greater than 10 pounds for 1 week
Driving Restrictions: No driving for 1 week
Bathing Restrictions: OK to Shower
Stand Alone Forms: Vascular Surg Discharge Instr
Referrals:
Luan Navarro DO [Primary Care Provider, Family Practice]
Donna Mckeon CRNP [Specified Professional Personl, Vascular Surgery] - 01/15/25 10:00 am
Additional Discharge Medication Instructions: follow up pulmonary physician in [place] regarding enlarging LLL nodule
Prescriptions:
New
aspirin 81 mg Tablet,Chewable
81 mg PO DAILY Qty: 90 0RF
Continued
fluticasone propionate 1 SPRAY spray,suspension
1 spray intranasal PRN PRN (Reason: allergies/congestion)
Patient Comments:
takes 50
Eliquis 5 MG tablet
5 mg PO BID
multivitamin 1 EACH tablet
1 tab PO QPM
cetirizine 10 MG tablet
10 mg PO QPM
potassium gluconate 600 MG tablet
99 mg PO BID
naltrexone 50 mg Tablet
50 mg PO DAILY
thiamine HCl (vitamin B1) [Vitamin B-1] 100 mg Tablet
100 mg PO QPM
tamsulosin [Flomax] 0.4 mg Capsule
0.4 mg PO QPM
diltiazem HCl 90 mg Capsule,Extended Release 12 Hr
90 mg PO DAILY
folic acid 1 mg Tablet
1 mg PO QPM
cholecalciferol (vitamin D3) [Vitamin D3] 25 mcg (1,000 unit) Tablet
25 mcg PO QPM
budesonide-formoterol [Symbicort] 160-4.5 mcg/actuation Hfa Aerosol Inhaler
1 inh INHALATION BID
magnesium oxide 400 mg magnesium Tablet
400 mg PO BID
Discharge Orders:
Discharge Patient (As Directed); Ordered 12/31/24
Ordered By: Halle Dial
Discharge Date and Time
Discharge Date/Time: 12/31/24 16:01
Print Language: [place]
== END 2024-12-31 16:01 | disposition home or self-care (01) | DRG 253 ==
LOC: ICU 06:01
PROVIDERS: Nurse Practitioner; Nurse Practitioner Acute Care; ADMITTING PHYSICIAN Surgery Vascular Surgery; CONSULT PHYSICIAN Internal Medicine Critical Care Medicine; PRIMARYCARE PHYSICIAN Family Medicine
PROC: 047E3DZ Dilation of Right Internal Iliac Artery with Intraluminal Device, Percutaneous Approach (ICD-10-PCS; 2024-12-30)
PROC: 04WY3DZ Revision of Intraluminal Device in Lower Artery, Percutaneous Approach (ICD-10-PCS; 2024-12-30)
DX: T82.310A Breakdown (mechanical) of aortic (bifurcation) graft (replacement), initial encounter (principal); D61.818 Other pancytopenia; I48.20 Chronic atrial fibrillation, unspecified; I71.43 Infrarenal abdominal aortic aneurysm, without rupture; I10 Essential (primary) hypertension; R29.6 Repeated falls; F10.10 Alcohol abuse, uncomplicated; G47.30 Sleep apnea, unspecified; I25.10 Atherosclerotic heart disease of native coronary artery without angina pectoris; R91.1 Solitary pulmonary nodule; E78.5 Hyperlipidemia, unspecified; J43.9 Emphysema, unspecified; Y83.2 Surgical operation with anastomosis, bypass or graft as the cause of abnormal reaction of the patient, or of later complication, without mention of misadventure at the time of the procedure; Y92.9 Unspecified place or not applicable; Y71.2 Prosthetic and other implants, materials and accessory cardiovascular devices associated with adverse incidents; Z60.2 Problems related to living alone; Z96.653 Presence of artificial knee joint, bilateral; Z87.891 Personal history of nicotine dependence; Z79.01 Long term (current) use of anticoagulants; Z91.81 History of falling; Z82.49 Family history of ischemic heart disease and other diseases of the circulatory system; Z80.42 Family history of malignant neoplasm of prostate; Z86.79 Personal history of other diseases of the circulatory system
CPT/HCPCS: 34705; 34713; 36415; 71046; 80048; 80076; 83735; 84100; 85025; 85027; 85610; 85730; 86850; 86900; 86901; 93005; 94640; C1760; C1769; C1773; C1874; C1894; C2628; Q9967

== ENCOUNTER → 2025-02-18 15:15 | Outpatient (REF) | payer MEDICARE, OTHER, SELFPAY | LOC: RAD 15:15 | PROVIDERS: ATTENDING PHYSICIAN Registered Nurse; FAMILY PHYSICIAN Family Medicine | DX: I71.43 Infrarenal abdominal aortic aneurysm, without rupture (principal) | CPT/HCPCS: 74174; Q9967 ==